=== PATIENT | male | born 1950 | race Caucasian/White ===

== ENCOUNTER → 2020-01-30 | Outpatient (CLI) | payer OTHER ==
[~2020-01-30] VITALS: Ht 190.5 cm; Wt 145.2 kg
[~2020-01-30] MED LIST: AMLODIPINE BESY10 MG PO; ASPIRIN325 PO; ATORVASTATIN CA40 MG PO; AZOR 10-40 MG1 EACH PO; CADUET 10 MG-41 EACH PO; CARDIO TEA1 EACH PO; CARVEDILOL6.25 MG PO; COREG CR20 MG PO; DIOVAN HCT 1601 EACH PO; FLOMAX0.4 MG PO; GLUCOSAMINE-CH1 EA36; HYDROCODON-ACE1 EAC5 PO; HYDROCODONE-AP1 EAC6 PO; IBUPROFEN 200200 M1 PO; METFORMIN HCL500 MG PO; MULTIVITAMINS; NORCO 10-325 T1 EACH PO; OMEGA-3 + VITA200 ML; VALSARTAN-HCTZ1 EAC1 PO; VITAMIN D250000 UNIT
--- NOTE | ~2020-01-30 | HPC ---
[facility] [place] [address] PAIN MANAGEMENT CONSULTATION Name: KARLIE PENA Room #: REG Megan Carter.#: [id number] Admission: 01/30/20 Attend Phys: Sebastian Matamoros MD Discharge: Date of : 50 Report #: [id number] THIS REPORT FOR: cc: Whitney To,Eitan Olson Jr.,Eitan Matamoros,Sebastian Miguel MD ~ CC: Eitan Matamoros DATE OF SERVICE: 01/30/2020 CHIEF COMPLAINT: Pain radiating into the left leg in the L4-L5 distribution. The patient is a pleasant patient who I have not seen for over 5 years. He is here today for pain in the low back radiating into the left leg in a radicular distribution. He has had prior back surgery that was performed in [address] Hair. Did fairly well after that. Beginning in the last month or so, he has had increasing pain, severe enough that inhibited his ability to stand and walk. He is using a walker. He lives [address] [place]. 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 He has been unable to perform many of his day-to-day activities and tasks due to a pain score of 9/10. He did see a chiropractor, got partial relief and plans to have another adjustment tomorrow, but the pain is too severe for him to exercise routinely. We discussed the importance of remaining active. He is admittedly overweight and knows that he needs to keep moving in order to avoid increased weight and the consequences for his back related to that. MEDICATIONS: Aspirin, multivitamins, metformin, amlodipine, atorvastatin, carvedilol, valsartan, hydrochlorothiazide and tamsulosin. ALLERGIES: None. PAST MEDICAL HISTORY: Significant for 1 prior back surgery in 2011, hernia repair in 1989. He had a neck cancer removed in 2013 and is considered cured. He has hypertension and is obese. SOCIAL HISTORY: He denies use of tobacco, drinks alcohol socially 2-3 beers a day. PHYSICAL EXAMINATION: GENERAL: Pleasant gentleman. VITAL SIGNS: Blood pressure 131/75, heart rate 81. BMI is 40. MUSCULOSKELETAL: Moves independently, walks with antalgic gait. Tenderness across his low back. Pain with forward flexion and extension. Straight leg raising is mildly positive on the left. Sensation is normal. Deep tendon reflexes are 1+ at knees, trace at the ankles. [facility] [address] [place] [address] PAIN MANAGEMENT CONSULTATION Name: KARLIE PENA Room #: REG [facility]#: [id number] Admission: 01/30/20 Attend Phys: Sebastian Matamoros MD Discharge: Date of : 50 Report #: [id number] IMPRESSION: Lumbar radiculopathy, left L4-L5 distribution. RECOMMENDATION: Epidural injection transforaminal on the left. PROCEDURE: After informed consent, he was taken to the fluoroscopic suite, placed prone, skin prepped with ChloraPrep. Skin anesthetized over the L4-L5 interspace. Using triplanar fluoroscopic views, I advanced a 6-inch 20-gauge needle into the neural foramen. A 1 mL of Omnipaque was injected with excellent spread of dye observed into the epidural space along the nerve root. It was followed then by 3 mL of 0.5% lidocaine mixed with 80 mg of triamcinolone. He tolerated the procedure well. There were no complications. Followup visit planned as needed. By: [id number] Sebastian Matamoros MD /nt
[2020-01-30 13:44] VITALS: BP 131/75
--- NOTE | 2020-01-30 13:47 | NUR ---
Pain Clinic Assessment: 1. History of Osteoarthritis: Left Lower Extremity Right Lower Extremity BACK History of Rheumatoid Arthritis: Not Applicable 2. Height: 6 ft. 3 in. 190.5 cm. Weight: 320.0 lb. oz. 145.152 kg. Patient's BMI: 40.0 3. Vital Signs: BP: 131/75 Pulse: 81 Resp: 16 Temp: 02 Sat: 97 ECG Mon: 4. Pain Intensity: 2 5. Fall Risk: Dizziness: N Needs help standing or walking: N Fallen in the last 3 months: Y Fall risk comments: 6. Patient on Blood Thinner: None 7. History of Hypertension: Y 8. Opioid Therapy greater than 6 weeks: N Opiate Contract Signed: 9. Risk Assessment Tool Provided: LOW 10. Functional Assessment Tool: 11. Recreational Drug Use: Never Drug Type: Tobacco Use: Never Smoker Tobacco Type: Amount or Packs/day: How Many Years: Alcohol Use: Yes Frequency: Weekly Quant: 2-3 BEERS
== END | disposition home or self-care (01) ==
LOC: PAIN 07:02
PROVIDERS: ATTEND Anesthesiology Pain Medicine
DX: M54.16 Radiculopathy, lumbar region (principal); I10 Essential (primary) hypertension; E66.09 Other obesity due to excess calories; Z98.890 Other specified postprocedural states; Z85.818 Personal history of malignant neoplasm of other sites of lip, oral cavity, and pharynx; Z68.41 Body mass index [BMI] 40.0-44.9, adult; Z79.899 Other long term (current) drug therapy